=== PATIENT | male | born 1950 | race Caucasian/White ===

== ENCOUNTER 2019-04-22 08:40 | Outpatient (CLI) | payer MEDICARE, OTHER ==
[2019-04-22] MEDS ORDERED: Iopamidol 370 76% 100 ML VIAL ONE (09:47)
--- NOTE | 2019-04-22 10:18 | CT ---
CT ABDOMEN WITH CONTRAST CT PELVIS WITH CONTRAST: DATE: 04/22/2019. HISTORY: A 68-year-old male with prostate cancer and rising serum PSA levels. TECHNIQUE: IV injection of iodinated contrast media: 100 mL of Isovue 370. Oral contrast media: not administered. FINDINGS: Liver: No focal solid mass. Spleen: No splenomegaly. Pancreas: No mass or surrounding fat stranding. Adrenals: No mass. Kidneys: No hydronephrosis or enhancement abnormalities. Ureters: No dilation. Bladder: Apparent diffuse mural thickening. Uncertain whether this is due to incomplete distention, chronic cystitis, or acute cystitis. Abdominal aorta: No aneurysm. Small bowel: No dilation. Colon: No adjacent fat stranding. Appendix: No dilation or adjacent fat stranding. Free air: None. Free fluid: None. Prostate: Small scattered calcifications, nonspecific. Skeleton: No suspicious osteoblastic skeletal metastatic lesions identified. 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 Lower lumbar spondylosis, especially facet osteoarthrosis at lower leve ls. IMPRESSION: No major pathology identified. tere [place] POS: SACHIN
--- NOTE | 2019-04-22 13:32 | NM ---
NM Bone Scan STANDARD History: Malignant neoplasm of prostate Comparison: CT abdomen and pelvis same day Findings: 3 hour whole body delayed images were obtained after the intravenous administration 32.8 mC i technetium 99m MDP. Adequate uptake of radiotracer. Degenerative changes of both knees. Mild degenerative disease of the sternomanubrial joint. No abnormal uptake to suggest metastatic dise ase. Linear uptake along the anterior left sixth costal cartilage likely from prior trauma or ossification. Impression: No evidence for osseous metastatic disease.
== END 2019-04-22 08:41 | disposition home or self-care (01) ==
LOC: CT 08:40
PROVIDERS: ATTEND Urology
DX: C61 Malignant neoplasm of prostate (principal)
CPT/HCPCS: 74177; 78306; A9503; Q9967

== ENCOUNTER 2022-03-23 05:55 | Day surgery (SDC) | payer MEDICARE, OTHER ==
[2022-03-22 09:32] VITALS: BMI 44.6
[2022-03-23] MEDS ORDERED: fentaNYL Citrate/PF 100 MCG/2 ML SYRINGE ONE (06:18)
[2022-03-23] MEDS ORDERED: Lidocaine 2% 6 ML SYR ONE (06:19)
[2022-03-23] MEDS ORDERED: Thrombin 5000 UNITS/5 ML VIAL ONE (06:30)
[2022-03-23] MEDS ORDERED: Sodium Chloride 0.9% 100 ML ONE ×2 (06:50→10:51)
[2022-03-23] MEDS ORDERED: CEFAZOLIN 2 GM VIAL ONE ×2 (06:50→10:51)
[2022-03-23] MEDS ORDERED: Midazolam HCl 2 mg/2 ml Vial ONE (06:52)
[2022-03-23] MEDS ORDERED: PROPOFOL 200 MG/20 ML VIAL ONE (07:00)
[2022-03-23] MEDS ORDERED: ePHEDrine 50 MG/ML VIAL ONE (07:00)
[2022-03-23] MEDS ORDERED: Ketorolac Tromethamine 30 MG/ML VIAL ONE (07:00)
[2022-03-23] MEDS ORDERED: Ondansetron PF 4 MG/2 ML Vial ONE (07:00)
[2022-03-23] MEDS ORDERED: Rocuronium Bromide 10 MG/ML (10ML VIAL) ONE (07:00)
[2022-03-23] MEDS ORDERED: Dexamethasone 20 MG/5 ML VIAL ONE (07:00)
[2022-03-23] MEDS ORDERED: SUGAMMADEX SODIUM 200 MG/2 ML VIAL ONE (08:03)
[2022-03-23] MEDS ORDERED: Tamsulosin HCl 0.4 MG CAP ONE (08:37)
[2022-03-23] MEDS ORDERED: HYDROcodone/Acetaminophen 5/325 mg Tablet ONE (09:44)
== END 2022-03-23 11:58 | disposition home or self-care (01) ==
LOC: SDC 05:55
PROVIDERS: ATTEND Neurological Surgery
PROC: 0RG10A0 Fusion of Cervical Vertebral Joint with Interbody Fusion Device, Anterior Approach, Anterior Column, Open Approach (ICD-10-PCS; principal; 2022-03-23)
DX: M48.02 Spinal stenosis, cervical region (principal); M47.22 Other spondylosis with radiculopathy, cervical region; M47.12 Other spondylosis with myelopathy, cervical region; G47.33 Obstructive sleep apnea (adult) (pediatric); E78.5 Hyperlipidemia, unspecified; E11.9 Type 2 diabetes mellitus without complications; M19.90 Unspecified osteoarthritis, unspecified site; Z85.46 Personal history of malignant neoplasm of prostate; Z79.01 Long term (current) use of anticoagulants; Z79.82 Long term (current) use of aspirin; Z79.84 Long term (current) use of oral hypoglycemic drugs; Z79.899 Other long term (current) drug therapy; Z88.8 Allergy status to other drugs, medicaments and biological substances; Z95.5 Presence of coronary angioplasty implant and graft
CPT/HCPCS: 20930; 20936; 22551; 22853; 76000; C1713; J0690; J1100; J1885; J2250; J2405; J2704; J3490

== ENCOUNTER 2022-05-16 05:50 | Day surgery (SDC) | payer MEDICARE, OTHER ==
[2022-05-15 09:37] VITALS: BMI 46.0
[2022-05-16] MEDS ORDERED: Thrombin 5000 UNITS/5 ML VIAL ONE (06:10)
[2022-05-16] MEDS ORDERED: Bupivacaine HCl 0.5%/Epinephrine 1:200,000/PF 30 ml Vial ONE (06:10)
[2022-05-16] MEDS ORDERED: fentaNYL PF 100 MCG/2 ML SYRINGE ONE ×2 (06:26→08:25)
[2022-05-16] MEDS ORDERED: Dexmedetomidine 200 MCG/2 ML VIAL ONE (06:26)
[2022-05-16] MEDS ORDERED: CEFAZOLIN 2 GM VIAL ONE ×2 (06:43→11:09)
[2022-05-16] MEDS ORDERED: Sodium Chloride 0.9% 100 ML ONE ×2 (06:43→11:09)
[2022-05-16] MEDS ORDERED: Ondansetron PF 4 MG/2 ML Vial ONE (07:04)
[2022-05-16] MEDS ORDERED: Rocuronium Bromide 10 MG/ML (10ML VIAL) ONE (07:04)
[2022-05-16] MEDS ORDERED: PROPOFOL 200 MG/20 ML VIAL ONE (07:04)
[2022-05-16] MEDS ORDERED: Ketorolac Tromethamine 30 MG/ML VIAL ONE (07:04)
[2022-05-16] MEDS ORDERED: ePHEDrine 50 MG/ML VIAL ONE (07:04)
[2022-05-16] MEDS ORDERED: NEOSTIGMINE 3 MG/3 ML SYR 3 MG/3 ML SYRINGE ONE (07:04)
[2022-05-16] MEDS ORDERED: Dexamethasone 20 MG/5 ML VIAL ONE (07:04)
[2022-05-16] MEDS ORDERED: Glycopyrrolate 0.2 MG/ML 5 ML SYRINGE ONE (07:04)
[2022-05-16] MEDS ORDERED: SUGAMMADEX SODIUM 200 MG/2 ML VIAL ONE (08:53)
[2022-05-16] MEDS ORDERED: Tamsulosin HCl 0.4 MG CAP ONE (09:23)
[2022-05-16] MEDS ORDERED: Oxymetazoline HCl 0.05% (30 ML BOT) ONE (11:01)
[2022-05-16] MEDS ORDERED: Acetaminophen/Codeine 30-300mg Tablet ONE (11:01)
== END 2022-05-16 13:35 | disposition home or self-care (01) ==
LOC: SDC 05:50
PROVIDERS: ATTEND Neurological Surgery
PROC: 01NB0ZZ Release Lumbar Nerve, Open Approach (ICD-10-PCS; principal; 2022-05-16)
DX: M48.062 Spinal stenosis, lumbar region with neurogenic claudication (principal); G47.33 Obstructive sleep apnea (adult) (pediatric); Z79.01 Long term (current) use of anticoagulants; Z79.82 Long term (current) use of aspirin; Z79.84 Long term (current) use of oral hypoglycemic drugs; Z79.899 Other long term (current) drug therapy; Z88.8 Allergy status to other drugs, medicaments and biological substances; Z95.5 Presence of coronary angioplasty implant and graft; Z98.1 Arthrodesis status
CPT/HCPCS: J1100; J1885; J2405; J2704; J3490

== ENCOUNTER 2024-01-04 10:36 | Inpatient (IN) | payer MEDICARE, OTHER ==
[2024-01-04] MEDS ORDERED: Iopamidol-370 76% 500 ML MDV (1 ML CHARGE) ONE (11:02)
[2024-01-04 11:12] LABS: #Basophils Less than 0.03 10x3/uL (0.0-0.2); #Eosinphils Less than 0.03 10x3/uL (0.0-0.7); %Basophils 0.4 % (0.0-1.0); %Eosinophils 0.4 % (0.0-10.0); %Lymphocytes 15.6 % (21.0-51.0); %Monocytes 7.6 % (0.0-10.0); %Neutrophils 75.6 % (42.0-75.0); Hematocrit 50.6 % (42.0-52.0); Hemoglobin 16.4 g/dL (14.0-18.0); Mean Corpuscular HGB CONC 32.4 g/dL (32.0-36.0); Mean Corpuscular Hemoglobin 31.8 pg (27.0-31.0); Mean Corpuscular Volume 98.1 fL (78.0-98.0); Mean Platelet Volume 9.6 fL (7.4-10.4); Platelet Count 144 10x3/uL (130-400); RBC Distribution Width 15.3 % (11.5-14.5); Red Blood Cell (RBC) Count 5.16 mill/uL (4.70-6.10)
[2024-01-04 11:27] LABS: ALT (SGPT) 20 U/L (8-55); AST (SGOT) 18 U/L (5-34); Albumin 2.2 g/dL (3.4-4.8); Alkaline Phosphatase 61 U/L (40-110); Anion Gap 11 mmol/L (10-20); BUN (Urea Nitrogen) 23 mg/dL (8.4-25.7); Bilirubin, Total 0.6 mg/dL (0.2-1.2); Calc. Creatinine Clearance 0 mL/min (70-130); Calcium 8.3 mg/dL (7.8-10.44); Carbon Dioxide 22 mmol/L (23-31); Chloride 108 mmol/L (98-107); Estimated GFR 92; Globulin 3.1 g/dL (2.4-3.5); Glucose 177 mg/dL (83-110); Potassium 3.9 mmol/L (3.5-5.1); Protein, Total 5.3 g/dL (5.8-8.1); Sodium 137 mmol/L (136-145)
[2024-01-04 11:32] LABS: Troponin I Less than 0.010 ng/mL (< 0.028)
[2024-01-04 11:56] LABS: INR-International Normal Ratio 1.4; Prothrombin Time 17.2 sec (12.0-14.7)
[2024-01-04] MEDS ORDERED: Pantoprazole 40 MG VIAL ONE (12:00)
[2024-01-04 12:42] LABS: Bacteria/HPF 4+ HPF (None Seen); Bilirubin Negative (Negative); Blood, Urine 3+ (Negative); CAUTI Indications for Culture Pelvic or flank pain; Clarity Extra Turbid (Clear); Glucose, Urine (Dipstick) Normal (Negative); Ketone, Urine Negative (Negative); Leukocyte 500 Leu/uL (Negative); Nitrite Negative (Negative); Protein, Urine (Dipstick) 70 mg/dL (Neg-Trace); Specific Gravity, Urine 1.016 (1.002-1.036); Squamous Epithelial None Seen HPF (0-3); Urobilinogen Normal mg/dL (Less than 2); WBC/HPF Greater than 50 HPF (0-3); pH, Urine 5.5 (5.0-9.0)
[2024-01-04 12:43] LABS: RBC/HPF 21-50 HPF (0-3); Urine Culture Reflex Yes Yes
[2024-01-04] MEDS ORDERED: HYDROcodone/Acetaminophen 5/325 mg Tablet ONE (13:48)
[2024-01-04 13:59] LABS: Lactic Acid 1.6 mmol/L (0.5-2.2)
[2024-01-04] MEDS ORDERED: Ondansetron PF 4 MG/2 ML Vial IVP PRN (16:12)
[2024-01-04] MEDS ORDERED: Albuterol 200 PUFF (6.7GM INHALER) INH PRN (16:48)
[2024-01-04] MEDS ORDERED: Cefepime 2 GM VIAL ONE (16:55)
[2024-01-04] MEDS ORDERED: Acetaminophen 325 MG TAB ONE (16:55)
[2024-01-04] MEDS ORDERED: Sodium Chloride 0.9% 100 ML ONE (16:55)
[2024-01-04] MEDS ORDERED: Dextrose 5% in Water 1,000 ML IV PRN (18:26)
[2024-01-04] MEDS ORDERED: Glucagon 1 MG/ML KIT IM PRN (18:26)
[2024-01-04] MEDS ORDERED: Dextrose 50% Abboject 50 ML SYRINGE SLOW IVP PRN (18:26)
[2024-01-04 18:38] LABS: Phosphorus 2.9 mg/dL (2.3-4.7)
[2024-01-04 18:40] LABS: Lipase 17 U/L (8-78); Magnesium 1.7 mg/dL (1.6-2.6)
[2024-01-04] MEDS: Lactated Ringer's 1,000 ML IV SCH (19:02)
[2024-01-04] MEDS: Aspirin 81 mg Enteric Coated Tablet PO SCH (20:48)
[2024-01-04] MEDS: Atorvastatin Calcium 40 MG TAB PO SCH (20:48)
[2024-01-04] MEDS: Loratadine 10 MG TAB PO SCH (20:48)
[2024-01-04] MEDS: Dronedarone HCl 400 MG TAB PO SCH (20:48)
[2024-01-04] MEDS ORDERED: metFORMIN XR 500 MG ER.TAB PO SCH (21:00)
[2024-01-04] MEDS ORDERED: Apixaban 5 MG TAB PO SCH (21:00)
[2024-01-05] MEDS: Cefepime 2 GM in Sodium Chloride 0.9% 100 ML IVPB SCH (03:25)
[2024-01-05] MEDS: Lactated Ringer's 500 ML IV SCH (05:11)
[2024-01-05] MEDS: Lactated Ringer's 1,000 ML IV SCH ×2 (05:12→10:15)
[2024-01-05] MEDS: Pantoprazole 40 MG VIAL IVP SCH ×3 (05:15→21:26)
[2024-01-05 05:17] LABS: ALT (SGPT) 16 U/L (8-55); AST (SGOT) 15 U/L (5-34); Albumin 1.7 g/dL (3.4-4.8); Alkaline Phosphatase 43 U/L (40-110); Anion Gap 12 mmol/L (10-20); BUN (Urea Nitrogen) 31 mg/dL (8.4-25.7); Bilirubin, Total 0.5 mg/dL (0.2-1.2); Calc. Creatinine Clearance 112 mL/min (70-130); Calcium 7.4 mg/dL (7.8-10.44); Carbon Dioxide 18 mmol/L (23-31); Chloride 109 mmol/L (98-107); Estimated GFR 68; Globulin 2.2 g/dL (2.4-3.5); Glucose 248 mg/dL (83-110); Potassium 4.2 mmol/L (3.5-5.1); Protein, Total 3.9 g/dL (5.8-8.1); Sodium 135 mmol/L (136-145)
[2024-01-05 05:22] LABS: #Basophils 0.04 10x3/uL (0.0-0.2); #Eosinphils Less than 0.03 10x3/uL (0.0-0.7); %Basophils 0.3 % (0.0-1.0); %Lymphocytes 10.7 % (21.0-51.0); %Monocytes 5.3 % (0.0-10.0); %Neutrophils 82.2 % (42.0-75.0); Hematocrit 14.4 % (42.0-52.0); Hemoglobin 4.5 g/dL (14.0-18.0); Mean Corpuscular HGB CONC 31.3 g/dL (32.0-36.0); Mean Corpuscular Hemoglobin 32.1 pg (27.0-31.0); Mean Corpuscular Volume 102.9 fL (78.0-98.0); Mean Platelet Volume 10.2 fL (7.4-10.4); Platelet Count 310 10x3/uL (130-400); RBC Distribution Width 15.7 % (11.5-14.5)
[2024-01-05] MEDS: Insulin Lispro 100 UNIT/ML 10 ML VIAL SC PRN ×2 (06:40→21:29)
[2024-01-05] MEDS ORDERED: Piperacillin/Tazobactam 4.5 GM in Sodium Chloride 0.9% 100 ML IVPB SCH (06:45)
[2024-01-05 07:13] LABS: INR-International Normal Ratio 1.5; PTT 33.5 sec (22.9-36.1); Prothrombin Time 18.6 sec (12.0-14.7)
[2024-01-05 07:17] VITALS: BMI 42.7
[2024-01-05] MEDS: Piperacillin/Tazobactam 3.375 GM in Sodium Chloride 0.9% 100 ML IVPB SCH ×2 (07:35→10:15)
[2024-01-05 08:33] LABS: Lactic Acid 2.6 mmol/L (0.5-2.2)
[2024-01-05] MEDS ORDERED: Pantoprazole 40 MG VIAL IVP SCH (09:00)
[2024-01-05] MEDS ORDERED: SUCCINYLCHOLINE/SOD CL,ISO/PF 200 MG/10 ML SYRINGE FS ONE (11:00)
[2024-01-05] MEDS ORDERED: Lidocaine 1% PF 5 ML VIAL ONE (11:00)
[2024-01-05] MEDS ORDERED: PHENYLEPHRINE-NS 100 MCG/ML 10 ML SYRINGE ONE (11:00)
[2024-01-05] MEDS ORDERED: Dexamethasone 20 MG/5 ML VIAL ONE (11:00)
[2024-01-05] MEDS ORDERED: PROPOFOL 200 MG/20 ML VIAL ONE (11:00)
[2024-01-05] MEDS ORDERED: Ondansetron PF 4 MG/2 ML Vial ONE (11:00)
[2024-01-05] MEDS: Azelastine 137 MCG/NASAL Spray 30 ML NS SCH (11:05)
[2024-01-05] MEDS: Fluticasone Propionate Nasal Spray 16 gm Bottle NASAL SCH (11:05)
[2024-01-05] MEDS ORDERED: Promethazine HCl 25 MG/ML VIAL IM PRN (11:25)
[2024-01-05] MEDS ORDERED: Ondansetron HCl/PF 4 MG/2 ML Vial IVP PRN (11:25)
[2024-01-05 16:34] LABS: Hematocrit 22.4 % (42.0-52.0); Hemoglobin 7.7 g/dL (14.0-18.0)
[2024-01-06 01:19] LABS: #Basophils Less than 0.03 10x3/uL (0.0-0.2); #Eosinphils Less than 0.03 10x3/uL (0.0-0.7); %Basophils 0.1 % (0.0-1.0); %Lymphocytes 14.6 % (21.0-51.0); %Monocytes 9.5 % (0.0-10.0); %Neutrophils 73.2 % (42.0-75.0); Mean Corpuscular HGB CONC 34.8 g/dL (32.0-36.0); Mean Corpuscular Hemoglobin 30.2 pg (27.0-31.0); Mean Corpuscular Volume 86.8 fL (78.0-98.0); Platelet Count 223 10x3/uL (130-400); RBC Distribution Width 17.2 % (11.5-14.5); Red Blood Cell (RBC) Count 2.65 mill/uL (4.70-6.10)
[2024-01-06 01:48] LABS: Anion Gap 13 mmol/L (10-20); BUN (Urea Nitrogen) 30 mg/dL (8.4-25.7); Calc. Creatinine Clearance 133 mL/min (70-130); Calcium 7.3 mg/dL (7.8-10.44); Carbon Dioxide 21 mmol/L (23-31); Chloride 109 mmol/L (98-107); Estimated GFR 81; Glucose 183 mg/dL (83-110); Sodium 139 mmol/L (136-145)
[2024-01-06 06:09] LABS: Hematocrit 22.8 % (42.0-52.0); Hemoglobin 7.9 g/dL (14.0-18.0)
[2024-01-06 14:35] LABS: Hematocrit 22.7 % (42.0-52.0); Hemoglobin 7.7 g/dL (14.0-18.0)
[2024-01-06 22:01] LABS: Hematocrit 23.6 % (42.0-52.0); Hemoglobin 7.7 g/dL (14.0-18.0)
[2024-01-07 05:51] LABS: #Basophils Less than 0.03 10x3/uL (0.0-0.2); %Basophils 0.2 % (0.0-1.0); %Eosinophils 0.6 % (0.0-10.0); %Lymphocytes 21.5 % (21.0-51.0); %Monocytes 8.1 % (0.0-10.0); %Neutrophils 66.2 % (42.0-75.0); Hematocrit 18.1 % (42.0-52.0); Hemoglobin 5.9 g/dL (14.0-18.0); Mean Corpuscular HGB CONC 32.6 g/dL (32.0-36.0); Mean Corpuscular Hemoglobin 31.1 pg (27.0-31.0); Mean Corpuscular Volume 95.3 fL (78.0-98.0); Mean Platelet Volume 9.9 fL (7.4-10.4); Platelet Count 168 10x3/uL (130-400)
[2024-01-07 06:08] LABS: Anion Gap 7 mmol/L (10-20); BUN (Urea Nitrogen) 12 mg/dL (8.4-25.7); Calc. Creatinine Clearance 200 mL/min (70-130); Calcium 5.6 mg/dL (7.8-10.44); Carbon Dioxide 17 mmol/L (23-31); Chloride 120 mmol/L (98-107); Estimated GFR 100; Glucose 100 mg/dL (83-110); Potassium 2.8 mmol/L (3.5-5.1); Sodium 141 mmol/L (136-145)
[2024-01-07 07:31] LABS: #Basophils Less than 0.03 10x3/uL (0.0-0.2); %Basophils 0.2 % (0.0-1.0); %Eosinophils 0.5 % (0.0-10.0); %Lymphocytes 20.9 % (21.0-51.0); %Monocytes 8.1 % (0.0-10.0); %Neutrophils 65.9 % (42.0-75.0); Hematocrit 22.6 % (42.0-52.0); Hemoglobin 7.4 g/dL (14.0-18.0); Mean Corpuscular HGB CONC 32.7 g/dL (32.0-36.0); Mean Corpuscular Hemoglobin 30.3 pg (27.0-31.0); Mean Corpuscular Volume 92.6 fL (78.0-98.0); Mean Platelet Volume 10.2 fL (7.4-10.4); Platelet Count 228 10x3/uL (130-400); RBC Distribution Width 18.1 % (11.5-14.5); Red Blood Cell (RBC) Count 2.44 mill/uL (4.70-6.10)
[2024-01-07 07:55] LABS: Calcium 7.5 mg/dL (7.8-10.44)
[2024-01-07 08:28] LABS: Albumin 1.9 g/dL (3.4-4.8); Anion Gap 12 mmol/L (10-20); BUN (Urea Nitrogen) 15 mg/dL (8.4-25.7); Calc. Creatinine Clearance 158 mL/min (70-130); Calcium 7.5 mg/dL (7.8-10.44); Carbon Dioxide 20 mmol/L (23-31); Chloride 112 mmol/L (98-107); Estimated GFR 93; Glucose 155 mg/dL (83-110); Potassium 3.7 mmol/L (3.5-5.1); Sodium 140 mmol/L (136-145)
[2024-01-07] MEDS: Furosemide 20 MG (2 mL) VIAL SLOW IVP SCH (10:37)
[2024-01-07 12:06] LABS: Hemoglobin A1c 5.2 % (4.0-6.0)
[2024-01-07] MEDS ORDERED: Iopamidol-370 76% 500 ML MDV (1 ML CHARGE) ONE (15:21)
[2024-01-07] MEDS: metFORMIN 500 MG TAB PO SCH (16:28)
[2024-01-07 18:49] LABS: Hematocrit 26.8 % (42.0-52.0); Hemoglobin 8.9 g/dL (14.0-18.0)
[2024-01-07 22:20] LABS: Hematocrit 26.3 % (42.0-52.0); Hemoglobin 8.9 g/dL (14.0-18.0)
[2024-01-08] MEDS: Acetaminophen 325 MG TAB PO PRN (05:23)
[2024-01-08 06:09] LABS: Hematocrit 26.6 % (42.0-52.0); Hemoglobin 8.6 g/dL (14.0-18.0)
[2024-01-08 06:24] LABS: ALT (SGPT) 28 U/L (8-55); AST (SGOT) 40 U/L (5-34); Albumin 2.2 g/dL (3.4-4.8); Alkaline Phosphatase 56 U/L (40-110); Anion Gap 14 mmol/L (10-20); BUN (Urea Nitrogen) 12 mg/dL (8.4-25.7); Bilirubin, Total 0.6 mg/dL (0.2-1.2); Calc. Creatinine Clearance 154 mL/min (70-130); Calcium 7.8 mg/dL (7.8-10.44); Carbon Dioxide 20 mmol/L (23-31); Chloride 109 mmol/L (98-107); Estimated GFR 92; Globulin 2.7 g/dL (2.4-3.5); Glucose 153 mg/dL (83-110); Potassium 3.8 mmol/L (3.5-5.1); Protein, Total 4.9 g/dL (5.8-8.1); Sodium 139 mmol/L (136-145)
[2024-01-08] MEDS: Sulfameth/Trimethoprim DS 800-160mg TAB PO SCH (08:55)
[2024-01-08 14:41] LABS: Hematocrit 27.6 % (42.0-52.0)
[2024-01-08 15:04] VITALS: BP 137/66; TEMP 98.5
[2024-01-08] MEDS ORDERED: Pantoprazole DR 40 MG TAB PO SCH (21:00)
== END 2024-01-08 15:07 | disposition home health service (06) | DRG 377 ==
LOC: ERS 10:36 → ERHOLD 16:25 → 2SW 18:37 → CCU 01-05 06:17 → OBSVTOIN 01-05 13:45 → T4-B 01-07 14:42
PROVIDERS: ADMIT Family Medicine; ATTEND Family Medicine
PROC: 0W3P8ZZ Control Bleeding in Gastrointestinal Tract, Via Natural or Artificial Opening Endoscopic (ICD-10-PCS; principal; 2024-01-05)
PROC: 30233N1 Transfusion of Nonautologous Red Blood Cells into Peripheral Vein, Percutaneous Approach (ICD-10-PCS; 2024-01-05)
DX: K26.4 Chronic or unspecified duodenal ulcer with hemorrhage (principal); R57.8 Other shock; D62 Acute posthemorrhagic anemia; T83.518A Infection and inflammatory reaction due to other urinary catheter, initial encounter; K80.20 Calculus of gallbladder without cholecystitis without obstruction; K21.9 Gastro-esophageal reflux disease without esophagitis; E78.5 Hyperlipidemia, unspecified; I25.10 Atherosclerotic heart disease of native coronary artery without angina pectoris; N40.0 Benign prostatic hyperplasia without lower urinary tract symptoms; I10 Essential (primary) hypertension; Z90.89 Acquired absence of other organs; Z79.899 Other long term (current) drug therapy; Z79.82 Long term (current) use of aspirin; Z79.01 Long term (current) use of anticoagulants; E11.65 Type 2 diabetes mellitus with hyperglycemia
CPT/HCPCS: 36415; 36416; 36430; 74177; 74178; 80048; 80053; 81001; 82040; 82274; 83036; 83605; 83690; 83735; 83880; 84100; 84443; 84484; 85014; 85018; 85025; 85610; 85730; 86850; 86900; 86901; 87040; 87077; 87086; 87186; 87324; 87449; 93005; 93306; 96365; 96367; 96375; 96376; C9113; G0378; J0692; J1100; J1815; J1940; J2405; J2543; J2704; J3475; J3490; J7120; P9016; Q9967